=== PATIENT | female | born 1935 | race Caucasian/White ===

== ENCOUNTER 2016-03-14 12:13 | Day surgery (SDC) | payer MEDICARE ==
[~2016-03-14 12:13] MED LIST: DIPHENHYDRAMINE HCL 50 MG/ML VIAL ONE; EPINEPHRINE INJ 1 MG/10 ML DISP.SYRIN ONE; FENTANYL CITRATE INJ/PF 100 MCG/2 ML AMPUL ONE; FLUMAZENIL INJ 0.5 MG/5 ML VIAL IV ONE; GLUCAGON,HUMAN RECOMB 1 MG INJ ONE; MIDAZOLAM 2 MG/2 ML INJ ONE; NALOXONE HCL INJ/PF 0.4 MG/1 ML SDV ONE; ONDANSETRON HCL INJ/PF 4 MG/2 ML SDV ONE; PROMETHAZINE HCL INJ 25 MG/1 ML VIAL ONE
--- NOTE | 2016-03-14 12:53 | Operative Report ---
Operative Report DATE OF SURGERY: 03/14/16 Operative Report: The risks benefits and alternatives of the procedure explained to the patient in detail and informed consent is obtained that GIF Olympus video scope was inserted into the patient's mouth and hypopharynx the esophagus is identified intubated and insufflated the scope was then advanced through the esophagus stomach and duodenum retroflexion maneuver is done the esophagus stomach and first and second portions of the duodenum examined PREOPERATIVE DIAGNOSIS: GERD POSTOPERATIVE DIAGNOSIS: Esophagitis. Hiatal hernia. Gastritis. Duodenitis OPERATION: EGD with biopsy SURGEON: HARESH ALVAREZ ANESTHESIA: Moderate Sedation - 2 mg of Versed, 50 g of fentanyl TISSUE REMOVED OR ALTERED: Gastric specimens obtained rule out Helicobacter pylori COMPLICATIONS: None. ESTIMATED BLOOD LOSS: none. INTRAOPERATIVE FINDINGS: As described above. PROCEDURE: Patient tolerated the procedure well. No immediate postprocedure complications are noted. Patient is discharged in good condition. Discharge date 03/14/2016 Discharge diet: Regular. Discharge activity: Regular. Patient does have a 2-3 week follow-up to discuss findings We'll await on biopsies Patient is instructed to go to the emergency room or call the office should there be any further problems or questions
[2016-03-14 13:53] VITALS: BP 160/79
== END 2016-03-14 14:00 | disposition home or self-care (01) ==
LOC: END 12:13
PROVIDERS: ATTEND Internal Medicine Gastroenterology
PROC: 0DB68ZX Excision of Stomach, Via Natural or Artificial Opening Endoscopic, Diagnostic (ICD-10-PCS; principal; 2016-03-14 12:30)
DX: K21.0 Gastro-esophageal reflux disease with esophagitis (principal); K29.70 Gastritis, unspecified, without bleeding; K29.80 Duodenitis without bleeding; K44.9 Diaphragmatic hernia without obstruction or gangrene; M10.172 Lead-induced gout, left ankle and foot; Z85.3 Personal history of malignant neoplasm of breast; Z79.899 Other long term (current) drug therapy; Z88.2 Allergy status to sulfonamides; Z86.010 Personal history of colon polyps
CPT/HCPCS: 43239; 88305 ×2; J2250; J3010; J0171; J1200; J1610; J2310; J2405; J2550; J3490